=== PATIENT | female | born 1995 | race Hispanic/Latino ===

== ENCOUNTER 2016-08-14 20:36 | Emergency (ER) | payer SELFPAY ==
[~2016-08-14] VITALS: Ht 149.9 cm; Wt 111.4 kg
[2016-08-14 20:40] VITALS: BP 142/90; RESP 16; O2SAT 99
--- NOTE | 2016-08-14 22:14 | ED.REPORT ---
HPI-Abd Pain F 2 and Over Date of Service Aug 14, 2016 ED Provider: Doc,Ed MD Nursing Notes Stated Complaint: FEVER, SORE THROAT Chief Complaint: ENT & Mouth Nursing Notes Reviewed: Yes Allergies: Coded Allergies: No Known Allergies (Verified Allergy, Unknown, 08/14/16) General Time Seen by MD: 22:13 Physical Exam Initial Vital Signs Vital Signs (First) Date Time Temp Pulse Resp B/P Pulse Ox O2 Delivery O2 Flow Rate FiO2 08/14/16 20:40 37.3 98 16 142/90 99 Room Air Discharge & Departure Referrals: NOPCP (PCP) Tray Orlando MD Aug 14, 2016 22:14 Consuelo Li Aug 14, 2016 22:19
[2016-08-14] MEDS ORDERED: _Albuterol-HFA 60 Puff Inhaler INHALATION PRN (22:25)
--- NOTE | 2016-08-14 22:25 | ED.REPORT ---
HPI-URI / Cough / Cold Date of Service Aug 14, 2016 ED Provider: Tary Orlando MD Patient is a 21 year old female with a history of asthma presents to the ED complaining of a painful sore throat that began a week ago. Patient reports pain with swallowing and frequent cough, which irritates her throat further. She has also had a fever for the past 4 days but is afebrile in the ED. She also reports having a nosebleed, sometimes coughing up blood. Patient states that she has been unable to go to work due to her symptoms. Patient did not receive a seasonal influenza shot this year. Nursing Notes Stated Complaint: FEVER, SORE THROAT Chief Complaint: ENT & Mouth Nursing Notes Reviewed: Yes Allergies: Coded Allergies: No Known Allergies (Verified Allergy, Unknown, 08/14/16) General Time Seen by MD: 22:13 Chief Complaint Sore throat Hx Obtained From: Patient Arrived By: Walk-in Onset Occurred: 1 week ago Symptom Duration: Since onset Location: : Pharynx Quality: Painful Severity: Current: Moderate Severity: Maximum: Moderate Context: Immunization Status Immunizations Not Up to Date: Seasonal influenza Recent Healthcare: No recent doctor visit, No recent hospitalization Similar Sx Previous: No Past Medical History Past Medical History Reports: Asthma Past Surgical History none reported Smoking History Unknown if Ever Smoker Social History Other Social History: Good social support, Local resident Ambulatory Status Independent Review of Systems Constitutional: Reports: Fever Ears / Nose / Throat: Reports: Nasal congestion, Nose bleeding, Sore throat, Throat pain Respiratory: Reports: Non-productive cough, Prod cough, bloody Complete sys rev & neg: except as marked. Physical Exam Initial Vital Signs Vital Signs (First) Date Time Temp Pulse Resp B/P Pulse Ox O2 Delivery O2 Flow Rate FiO2 08/14/16 20:40 37.3 98 16 142/90 99 Room Air Initial VS: Reviewed, Vital signs abnormal Head / Eyes: Atraumatic, Normocephalic, PERRL Neck: Supple, Non-tender Cardiovascular: Regular rate & rhythm, Heart sounds normal Skin: Warm, Dry, No cyanosis Neurologic: Alert, Oriented, Nonfocal Psychiatric: Mood/affect normal, Behavior normal, Normal thought content General/Constitutional: Awake, Alert Appearance / Presentation: Positive: Obese ENT: Airway patent, Mastoid area NL Right Ear / Mastoid: Positive: Tympanic membrane red Left Ear / Mastoid: Positive: Tympanic membrane bulging, Tympanic membrane red (dull, reddened, and thickened) Respiratory / Chest: Breath sounds NL, Breath sounds = bilat, No respiratory distress, No rales, No rhonchi Wheezing / Retractions: Positive: Wheezing expiratory (with forced expiration) wheezy cough Interpretation & Diagnostics Interpretation & Diagnostics: Rapid Bedside Strep: Negative. Re-Eval/Medical Decision Med Decision/Clinical Course 21-year-old female with upper respiratory symptoms. She is found to have a bilateral otitis media. Strep test is negative. She is treated with amoxicillin. There is no evidence of more severe bacterial complications at this time. Source of Hx: Old records Re-Evaluation/Progress : Time of Eval: 23:05 Patient Status: Condition improved Re-Evaluation/Progress Note: Her ear infection will be treated with antibiotics. Patient understands and agrees with the plan to be discharged home. Discharge instructions and follow-up discussed. All questions were addressed. Return to the ED warnings given. Counseled Regarding: Diagnosis, Need for follow-up, When/why to return to ED Discharge & Departure Impression: Primary Impression: Otitis media Otitis media type: suppurative Laterality: bilateral Chronicity: acute Recurrence: not specified Spontaneous tympanic membrane rupture: without spontaneous rupture Qualified Code: H66.003 - Acute suppurative otitis media without spontaneous rupture of ear drum, bilateral Disposition: Home Discharge Condition All VS Reviewed: Yes Condition: Stable Patient Instructions: Otitis Media (ED) Additional Instructions: You have infection of both ears, worse on the right. No strep throat. You have some wheezing, reactive airways from the infection. Amoxicillin 500 mg, one 3 times a day for 10 days #30 dispensed. Albuterol inhaler with spacer, 2 puffs 3-4 times a day as needed for wheezing and cough, #1 dispensed. Follow- up with your regular doctor in the next few days if not improving or return to the emergency room if you worsen significantly. Referrals: [facility] Scribe Attestation Portions of this note were transcribed by Consuelo Li. I, Dr. Orlando personally performed the history, physical exam and medical decision-making; I reviewed and confirmed the accuracy of the information in the transcribed note. Signed by: Rizwana Park, 08/14/2016 [id number] Tray Orlando MD Aug 14, 2016 22:25 Consuelo Li Aug 14, 2016 22:30
[2016-08-15] MEDS ORDERED: _Amoxicillin 500 mg Capsule PO SCH (08:30)
== END 2016-08-14 23:18 | disposition home or self-care (01) ==
LOC: SED 20:36
DX: H66.003 Acute suppurative otitis media without spontaneous rupture of ear drum, bilateral (principal); J45.909 Unspecified asthma, uncomplicated